=== PATIENT | female | born 1960 | race Hispanic/Latino ===

== ENCOUNTER 2017-08-23 17:22 | Emergency (ER) | payer BC ==
[2017-08-23 17:30] VITALS: BMI 30.2
[2017-08-23] MEDS ORDERED: Sodium Chloride 0.9% 1,000 ML IV STA (17:32)
[2017-08-23 17:51] VITALS: RESP 18; TEMP 97.7
[2017-08-23 17:53] LABS: URINE APPEARANCE CLEAR (CLEAR); URINE BILIRUBIN NEGATIVE (NEGATIVE); URINE BLOOD NEGATIVE (NEGATIVE); URINE COLOR COLORLESS (YELLOW); URINE GLUCOSE (UA) NEGATIVE (NEGATIVE); URINE LEUKOCYTE ESTERASE NEGATIVE Leu/uL (NEGATIVE); URINE PROTEIN NEGATIVE mg/dL (<30 mg/dL); URINE UROBILINOGEN 0.2 E.U./dL (<1 E.U./dL)
--- NOTE | 2017-08-23 18:02 | ED PDOC ---
Arrival/HPI - General Chief Complaint: Weakness/Neurological Deficit Time Seen by Provider: 08/23/17 17:30 Historian: Spouse () - History of Present Illness Narrative History of Present Illness (Text): 08/23/17 17:26 A 56 year old female, who is accompanied by and presents to the emergency department for AMS. Patient's reports last night, patient went to bed in a normal state of behavior. Today, patient woke up at 10:00 and seemed unsteady on her feet. Patient later on returned back to sleep at approximately 13:00 and woke up at 17:00 with generalized weakness. described patient as " weight" and would not get up. Limited HPI and ROS due to patient's lethargy. Upon arrival, patient, while lethargic, is moving all extremities. Patient mentions that she was recently prescribed ambien. Past Medical History - Provider Review Nursing Documentation Reviewed: Yes - Infectious Disease Hx of Infectious Diseases: None - Reproductive Menopause: Yes - Cardiac Hx Hypertension: Yes - Pulmonary Hx Respiratory Disorders: No - Neurological Hx Neurological Disorder: No - HEENT Hx HEENT Disorder: No - Renal Hx Renal Disorder: No - Endocrine/Metabolic Hx Endocrine Disorders: No - Hematological/Oncological Hx Blood Transfusions: Yes - Integumentary Hx Dermatological Disorder: No - Musculoskeletal/Rheumatological Hx Musculoskeletal Disorders: No Other/Comment: spinal stenosis , neck pain , knee pain - Gastrointestinal Hx Gastrointestinal Disorders: No - Genitourinary/Gynecological Hx Genitourinary Disorders: No - Psychiatric Hx Anxiety: Yes Hx Substance Use: No - Surgical History Hx Section: Yes (2) Hx Hysterectomy: Yes - Anesthesia Hx Anesthesia: No Family/Social History - Physician Review Nursing Documentation Reviewed: Yes Family/Social History: No Known Family HX Smoking Status: Never Smoked Hx Alcohol Use: No Hx Substance Use: No Allergies/Home Meds Allergies/Adverse Reactions: Allergies iodine Allergy (Verified 12/15/15 11:01) ANAPHYLAXIS environmental Allergy (Uncoded 08/23/17 17:46) CONGESTION Home Medications: Home Meds Medication Instructions Recorded Confirmed Lisinopril [Zestril] 20 mg PO DAILY 08/23/17 08/23/17 Zolpidem [Ambien] 5 mg PO HS 08/23/17 08/23/17 Review of Systems - Review of Systems Systems not reviewed;Unavailable: Altered Mental Status Physical Exam Vital Signs Reviewed: Yes Vital Signs Temp Pulse Resp BP Pulse Ox 08/23/17 18:51 93 H 18 191/63 H 96 08/23/17 17:49 97.7 F 92 H 18 134/93 H 98 Temperature: Afebrile Blood Pressure: Normal Pulse: Regular Respiratory Rate: Normal Appearance: Positive for: Well-Appearing Pain Distress: None Mental Status: Positive for: Lethargic - Systems Exam Head: Present: Atraumatic, Normocephalic Pupils: Present: PERRL Extroacular Muscles: Present: EOMI Conjunctiva: Present: Normal Mouth: Present: Moist Mucous Membranes Respiratory/Chest: Present: Clear to Auscultation, Good Air Exchange. No: Respiratory Distress, Accessory Muscle Use Cardiovascular: Present: Regular Rate and Rhythm, Normal S1, S2. No: Murmurs Abdomen: No: Tenderness, Distention, Peritoneal Signs Upper Extremity: Present: Normal Inspection, Normal ROM (when both arms are raised, they fall away from face without hitting head.). No: Cyanosis, Edema Lower Extremity: Present: Normal Inspection, Normal ROM, Other (spontaneous movement of b/l upper and lower extremities x 2). No: Edema Psychiatric: Present: Lethargic (uncooperative. episodes where she will answer questions such as her height and medications and then immediately followed by episodes of non-sensical speech) Medical Decision Making ED Course and Treatment: 08/23/17 17:30 Impression: 56 year old female with AMS. No focal deficits. Plan: -- EKG -- Head CT -- Chest X-ray -- Labs -- Blood Culture -- Urine Culture -- IV Fluids -- Reassess and disposition Progress Notes: 08/23/2017 18:[address] IMPRESSION: No acute intracranial abnormalities. No significant findings to account for the clinical presentation. Dictator: Bobby Osman MD 08/23/17 18:23 EKG shows NSR at 98bpm with t wave inversions, unchanged from prior in 2016 08/23/2017 18:23 Chest X-ray IMPRESSION: No active disease. Dictator: Bobby Osman MD 08/23/17 21:48 Labs show elevated alcohol level. Patients mental status is improving with banana bag and monitoring. She denies HI/SI. Will monitor for sobriety 08/23/17 22:[address] Honeycutt to monitor and reeevaluate - Lab Interpretations Lab Results: 08/23/17 17:45 08/23/17 17:45 Lab Results 08/23/17 17:45: Salicylates < 1 L, Acetaminophen < 10.0 L 08/23/17 17:45: Free T4 0.93, TSH 3rd Generation 0.93, Alcohol, Quantitative 389 H* 08/23/17 17:45: Ammonia 53 H 08/23/17 17:45: Sodium 153 H, Potassium 3.6, Chloride 109 H, Carbon Dioxide 25, Anion Gap 22 H, BUN 15, Creatinine 0.5 L, Est GFR ( Amer) > 60, Est GFR ( Non-Af Amer) > 60, Random Glucose 107, Calcium 8.9, Phosphorus 3.5, Magnesium 1.9, Total Bilirubin 0.3, AST 44 H, ALT 45, Alkaline Phosphatase 76, Lactate Dehydrogenase 646, Total Creatine Kinase 45, Troponin I < 0.01, Total Protein 7.8, Albumin 4.3, Globulin 3.4, Albumin/Globulin Ratio 1.3 08/23/17 17:45: PT 11.4, INR 1.00, APTT 29.7 08/23/17 17:45: WBC 3.8 L D, RBC 3.87, Hgb 12.2, Hct 35.9 L, MCV 92.8, MCH 31.5 , MCHC 34.0, RDW 13.4, Plt Count 189, MPV 10.0, Gran % 39.4 L, Lymph % (Auto) 48.8 H, [place] % (Auto) 8.7 H, Eos % (Auto) 2.6, Baso % (Auto) 0.5, Gran # 1.50, Lymph # (Auto) 1.9, [place] # (Auto) 0.3, Eos # (Auto) 0.1, Baso # (Auto) 0.02 08/23/17 17:35: Urine Opiates Screen Negative, Urine Methadone Screen Negative, Ur Barbiturates Screen Negative, Ur Phencyclidine Scrn Negative, Ur Amphetamines Screen Negative, U Benzodiazepines Scrn Negative, U Oth Cocaine Metabols Negative, U Cannabinoids Screen Negative 08/23/17 17:35: Urine Color Colorless, Urine Appearance Clear, Urine pH 6.0, Ur Specific [place] <= 1.005, Urine Protein Negative, Urine Glucose (UA) Negative, Urine Ketones Negative, Urine Blood Negative, Urine Nitrate Negative, Urine Bilirubin Negative, Urine Urobilinogen 0.2, Ur Leukocyte Esterase Negative I have reviewed the lab results: Yes - RAD Interpretation Radiology Orders: 08/23/17 17:30 HEAD W/O CONTRAST [CT] Stat CHEST PORTABLE [RAD] Stat - Medication Orders Current Medication Orders: Folic Acid 1 mg/ Thiamine HCl 100 mg/ Multivitamins/Vitamin C 10 ml/ Dextrose 1 ,011.2 mls @ 100 mls/hr IV .Q10H7M MILLIE Last Admin: 08/23/17 19:30 Dose: 100 mls/hr eMAR Start Stop Document 08/23/17 19:30 JOL (Rec: 08/23/17 19:30 [facility] [id number] Intravenous Solution Start Date 08/23/17 Start Time 19:30 Discontinued Medications Sodium Chloride (Sodium Chloride 0.9%) 1,000 mls @ 999 mls/hr IV .Q1H1M STA Stop: 08/23/17 18:32 Last Admin: 08/23/17 18:38 Dose: 999 mls/hr eMAR Start Stop Document 08/23/17 18:38 SRE (Rec: 08/23/17 18:39 SRE [id number]) Intravenous Solution Start Date 08/23/17 Start Time 18:35 End Date 08/23/17 End time 19:35 Total Infusion Time 60 - Scribe Statement The provider has reviewed the documentation as recorded by the Gary Oneill Provider Scribe Attestation: All medical record entries made by the Gary were at my direction and personally dictated by me. I have reviewed the chart and agree that the record accurately reflects my personal performance of the history, physical exam, medical decision making, and the department course for this patient. I have also personally directed, reviewed, and agree with the discharge instructions and disposition. Disposition/Present on Arrival - Present on Arrival Any Indicators Present on Arrival: No History of DVT/PE: No History of Uncontrolled Diabetes: No Urinary Catheter: No History of Decub. Ulcer: No History Surgical Site Infection Following: None - Disposition Have Diagnosis and Disposition been Completed?: Yes Diagnosis: Alcohol abuse, Ambien use disorder, mild Disposition Time: 23:00 Patient Problems: Current Active Problems Problem Status Onset Alcohol abuse Acute Ambien use disorder, mild Acute Condition: GOOD Forms: [employer] ([place]ian)
[2017-08-23 18:04] LABS: BASO # 0.02 K/mm3 (0.0-2.0); BASO % 0.5 % (0.0-3.0); EOS # 0.1 (0.0-0.7); EOS % 2.6 % (1.5-5.0); GRAN # 1.5 (1.4-6.5); GRAN % 39.4 % (50.0-68.0); HEMOGLOBIN 12.2 g/dL (12.0-16.0); LYMPH # 1.9 (1.2-3.4); LYMPH % 48.8 % (22.0-35.0); MEAN CELL VOLUME 92.8 fl (80.0-105.0); MEAN CORPUSCULAR HEMOGLOBIN 31.5 pg (25.0-35.0); MONO # 0.3 (0.1-0.6); MONO % 8.7 % (1.0-6.0); RBC 3.87 10^6/uL (3.5-6.1); RED CELL DISTRIBUTION WIDTH 13.4 % (11.5-14.5); WHITE BLOOD COUNT 3.8 10^3/ul (4.5-11.0)
[2017-08-23 18:10] LABS: BENZODIAZEPINES, UR NEGATIVE (NEGATIVE)
[2017-08-23 18:11] LABS: PARTIAL THROMBOPLASTIN TIME 29.7 Seconds (25.1-36.5); PROTHROMBIN TIME 11.4 SECONDS (9.4-12.5)
[2017-08-23 18:16] LABS: ALB/GLOB RATIO 1.3 (1.1-1.8); ALBUMIN 4.3 g/dL (3.0-4.8); ALT/SGPT 45 U/L (7-56); AST/SGOT 44 U/L (14-36); BLOOD UREA NITROGEN 15 mg/dL (7-21); CALCIUM 8.9 mg/dL (8.4-10.5); GFR AFRICAN-AMERICAN > 60; GFR NON-AFRICAN AMERICAN > 60
--- NOTE | 2017-08-23 18:17 | CT ---
Date of service: 08/23/2017 PROCEDURE: CT HEAD WITHOUT CONTRAST. HISTORY: Right-sided weakness COMPARISON: None available. TECHNIQUE: Axial computed tomography images were obtained through the head/brain without intravenous contrast. Coronal and sagittal reconstructed images. Radiation dose: Total exam DLP = 936.07 mGy-cm. This CT exam was performed using one or more of the following dose reduction techniques: Automated exposure control, adjustment of the mA and/or kV according to patient size, and/or use of iterative reconstruction technique. FINDINGS: HEMORRHAGE: No intracranial hemorrhage. BRAIN: No mass effect or edema. Cortical atrophy, periventricular small vessel disease. VENTRICLES: Unremarkable. No hydrocephalus. CALVARIUM: Unremarkable. PARANASAL SINUSES: Unremarkable as visualized. No significant inflammatory changes. MASTOID AIR CELLS: Unremarkable as visualized. No inflammatory changes. OTHER FINDINGS: None. IMPRESSION: No acute intracranial abnormalities. No significant findings to account for the clinical presentation.
[2017-08-23 18:19] LABS: BARBITURATES, UR NEGATIVE (NEGATIVE); OPIATES, UR NEGATIVE (NEGATIVE); PHENCYCLIDINE, UR NEGATIVE (NEGATIVE)
--- NOTE | 2017-08-23 18:25 | RAD ---
Date of service: 08/23/2017 HISTORY: Right-sided weakness COMPARISON: No prior. FINDINGS: LUNGS: No active pulmonary disease. PLEURA: No significant pleural effusion identified, no pneumothorax apparent. CARDIOVASCULAR: No radiographic findings to suggest acute or significant cardiovascular disease. OSSEOUS STRUCTURES: No significant abnormalities. VISUALIZED UPPER ABDOMEN: Normal. OTHER FINDINGS: None. IMPRESSION: No active disease.
[2017-08-23 18:27] LABS: TROPONIN I < 0.01 ng/mL
[2017-08-23 18:28] LABS: ACETAMINOPHEN < 10.0 ug/ml (10.0-20.0); SALICYLATE < 1 mg/dL (2.0-20.0)
[2017-08-23] MEDS ORDERED: Folic Acid 1 MG, Thiamine 100 MG, Multivitamin (MVI) 10 ML in Dextrose 5% In Water 1,00... IV SCH (18:30)
[2017-08-23 18:44] LABS: FREE T4 0.93 ng/dL (0.78-2.19)
--- NOTE | 2017-08-23 23:39 | ED PDOC ---
Physical Exam Vital Signs Reviewed: Yes Vital Signs Temp Pulse Resp BP Pulse Ox 08/23/17 18:51 93 H 18 191/63 H 96 08/23/17 17:49 97.7 F 92 H 18 134/93 H 98 Temperature: Afebrile Blood Pressure: Hypertensive Pulse: Tachycardic Respiratory Rate: Normal Appearance: Positive for: Well-Appearing, Non-Toxic, Comfortable Pain Distress: None Mental Status: Positive for: Alert and Oriented X 3 Finger Stick Blood Glucose: 109 Medical Decision Making ED Course and Treatment: 08/23/17 23:38: Case endorsed to me by Dr. Candelario. Pending sobriety. Will re- evaluate and disposition. 08/24/17 01:45: On re-evaluation, patient feels better and is in no acute distress. Patient's is currently in the emergency department. He will be taking the patient home. Patient is stable for discharge. - Lab Interpretations Lab Results: 08/23/17 17:45 08/23/17 17:45 Lab Results 08/23/17 17:45: Salicylates < 1 L, Acetaminophen < 10.0 L 08/23/17 17:45: Free T4 0.93, TSH 3rd Generation 0.93, Alcohol, Quantitative 389 H* 08/23/17 17:45: Ammonia 53 H 08/23/17 17:45: Sodium 153 H, Potassium 3.6, Chloride 109 H, Carbon Dioxide 25, Anion Gap 22 H, BUN 15, Creatinine 0.5 L, Est GFR ( Amer) > 60, Est GFR ( Non-Af Amer) > 60, Random Glucose 107, Calcium 8.9, Phosphorus 3.5, Magnesium 1.9, Total Bilirubin 0.3, AST 44 H, ALT 45, Alkaline Phosphatase 76, Lactate Dehydrogenase 646, Total Creatine Kinase 45, Troponin I < 0.01, Total Protein 7.8, Albumin 4.3, Globulin 3.4, Albumin/Globulin Ratio 1.3 08/23/17 17:45: PT 11.4, INR 1.00, APTT 29.7 08/23/17 17:45: WBC 3.8 L D, RBC 3.87, Hgb 12.2, Hct 35.9 L, MCV 92.8, MCH 31.5 , MCHC 34.0, RDW 13.4, Plt Count 189, MPV 10.0, Gran % 39.4 L, Lymph % (Auto) 48.8 H, [place] % (Auto) 8.7 H, Eos % (Auto) 2.6, Baso % (Auto) 0.5, Gran # 1.50, Lymph # (Auto) 1.9, [place] # (Auto) 0.3, Eos # (Auto) 0.1, Baso # (Auto) 0.02 08/23/17 17:35: Urine Opiates Screen Negative, Urine Methadone Screen Negative, Ur Barbiturates Screen Negative, Ur Phencyclidine Scrn Negative, Ur Amphetamines Screen Negative, U Benzodiazepines Scrn Negative, U Oth Cocaine Metabols Negative, U Cannabinoids Screen Negative 08/23/17 17:35: Urine Color Colorless, Urine Appearance Clear, Urine pH 6.0, Ur Specific [place] <= 1.005, Urine Protein Negative, Urine Glucose (UA) Negative, Urine Ketones Negative, Urine Blood Negative, Urine Nitrate Negative, Urine Bilirubin Negative, Urine Urobilinogen 0.2, Ur Leukocyte Esterase Negative - RAD Interpretation Radiology Orders: 08/23/17 17:30 HEAD W/O CONTRAST [CT] Stat CHEST PORTABLE [RAD] Stat - Medication Orders Current Medication Orders: Folic Acid 1 mg/ Thiamine HCl 100 mg/ Multivitamins/Vitamin C 10 ml/ Dextrose 1 ,011.2 mls @ 100 mls/hr IV .Q10H7M [facility] Last Admin: 08/23/17 19:30 Dose: 100 mls/hr eMAR Start Stop Document 08/23/17 19:30 JOL (Rec: 08/23/17 19:30 [facility] [id number] Intravenous Solution Start Date 08/23/17 Start Time 19:30 Discontinued Medications Sodium Chloride (Sodium Chloride 0.9%) 1,000 mls @ 999 mls/hr IV .Q1H1M STA Stop: 08/23/17 18:32 Last Admin: 08/23/17 18:38 Dose: 999 mls/hr eMAR Start Stop Document 08/23/17 18:38 SRE (Rec: 08/23/17 18:39 SRE [id number]) Intravenous Solution Start Date 08/23/17 Start Time 18:35 End Date 08/23/17 End time 19:35 Total Infusion Time 60 Disposition/Present on Arrival - Present on Arrival Any Indicators Present on Arrival: No History of DVT/PE: No History of Uncontrolled Diabetes: No Urinary Catheter: No History of Decub. Ulcer: No History Surgical Site Infection Following: None - Disposition Have Diagnosis and Disposition been Completed?: Yes Diagnosis: Alcohol abuse, Ambien use disorder, mild Disposition: HOME/ ROUTINE Disposition Time: 01:45 Condition: GOOD Discharge Instructions (ExitCare): Prescription Drug Abuse (DC), Alcohol Abuse and Alcoholism (DC) Forms: [employer] (Wallisian)
[2017-08-24 08:17] VITALS: BP 130/78; PULSE 88; O2SAT 98
--- NOTE | 2017-08-24 09:29 | CARD ---
APPROVED REPORT Date of service: 08/23/2017 EKG Measurement Heart [id number] [id number] <Conclusion> Normal sinus rhythm Low voltage QRS Possible Old Inf.Wall IN? Clockwise Rotation. ST_T Changes.
== END 2017-08-24 02:00 | disposition home or self-care (01) ==
LOC: ED 17:22
DX: F10.10 Alcohol abuse, uncomplicated (principal); Y90.8 Blood alcohol level of 240 mg/100 ml or more; F13.90 Sedative, hypnotic, or anxiolytic use, unspecified, uncomplicated; I10 Essential (primary) hypertension; F41.9 Anxiety disorder, unspecified
CPT/HCPCS: 70450; 71045; 80053; 81003; 82140; 82550; 83615; 83735; 84100; 84439; 84443; 84484; 85025; 85610; 85730; 87040; 87086; 93005; 96360; 99285; G0480; J3411; J7030; J7070